=== PATIENT | female | born 1995 | race Two or more races ===

== ENCOUNTER 2020-08-13 16:56 | Emergency (ER) | payer MEDICAID, OTHER ==
[~2020-08-13] VITALS: Ht 172.7 cm; Wt 54.4 kg
[2020-08-13] MEDS ORDERED: LORAZEPAM 2 MG/1 ML VIAL ONE (17:11)
[2020-08-13] MEDS ORDERED: LORAZEPAM 2 MG/1 ML VIAL IV ONE (17:15)
[2020-08-13] MEDS ORDERED: CLON1TAB PO (17:19)
[2020-08-13 17:38] LABS: CREATININE 0.7 mg/dL (0.6-1.3); POTASSIUM 3.6 mmol/L (3.5-5.1)
--- NOTE | 2020-08-13 18:14 | NUR ---
IV removed. Catheter intact and site benign. Pressure and 4x4 gauze applied to site. No bleeding noted. Patient discharged to home in stable condition with steady gait. Written and verbal after care instructions given to patient and her boyfriend. Patient and significant other verbalized understanding & compliance of instructions. Stressed follow up with her primary doctor and neurologist or return to ER for worsening s/s.
== END 2020-08-13 18:24 | disposition home or self-care (01) ==
LOC: ER 16:58
DX: G40.909 Epilepsy, unspecified, not intractable, without status epilepticus (principal); Z79.899 Other long term (current) drug therapy
CPT/HCPCS: 36415; 80048; 96374; 99284; J2060; A4663